=== PATIENT | male | born 1960 | race Caucasian/White ===

== ENCOUNTER 2016-06-17 19:30 | Observation (INO) | payer OTHER ==
[2016-06-17] MEDS ORDERED: IPRATROPIUM/ALBUTEROL 3 ML DEYVIAL IH ONE (19:48)
[2016-06-17] MEDS ORDERED: methylPREDNISolone SOD SUCC 125 MG/2 ML VIAL IVP ONE (20:14)
[2016-06-17] MEDS ORDERED: ALBUTEROL 3 ML DEYVIAL IH ONE ×2 (20:21→21:15)
--- NOTE | 2016-06-17 20:42 | CPEKG ---
Heart Rate: 90 RR Interval: 667 P-R Interval: 112 QRSD Interval: 82 QT Interval: 348 QTC Interval: 426 P Hinton: 91 QRS Hinton: 83 T Wave Hinton: 60 EKG Severity - ABNORMAL ECG - EKG Impression: SINUS RHYTHM EKG Impression: RIGHT ATRIAL ABNORMALITY Electronically Signed By: Josh Carey 17-Jun-2016 22:55:25
[2016-06-17 20:45] LABS: % IMMATURE GRANULYOCYTES 0.2 % (0.0-1.1); ABSOLUTE IMMATURE GRANULOCYTES 0.02 10^3/uL (0.00-0.10); ADD DIFF? NO; ADD MORPH? NO; ADD SCAN? NO; ATYPICAL LYMPHOCYTE FLAG 30 (0-99); FRAGMENT RBC FLAG 0 (0-99); HEMATOCRIT 45.8 % (40.0-51.0); HEMOGLOBIN 16.4 g/dL (13.7-17.5); LEFT SHIFT FLG 0 (0-99); LIPEMIA HEMOLYSIS FLAG 90 (0-99); MEAN CELL HEMOGLOBIN 33.8 pg (27.9-34.1); MEAN CELL HEMOGLOBIN CONCENTR. 35.8 g/dL (32.4-36.7); MEAN CELL VOLUME 94.4 fL (81.5-99.8); MEAN PLATELET VOLUME 9.9 fL (8.7-11.7); PLATELET CLUMPS FLAG 0 (0-99); PLATELET COUNT 129 10^3/uL (150-400); RED BLOOD CELL COUNT 4.85 10^6/uL (4.40-6.38); RED CELL DISTRIBUTION WIDTH 11.9 % (11.5-15.2)
[2016-06-17 20:52] LABS: ALANINE AMINOTRANSFERASE 32 IU/L (21-72); ALBUMIN 3.6 g/dL (3.5-5.0); ALKALINE PHOSPHATASE 55 IU/L (38-126); ANION GAP 13 mEq/L (8-16); ASPARTATE AMINOTRANSFERASE 26 IU/L (17-59); BILIRUBIN,TOTAL 0.7 mg/dL (0.1-1.4); CALCIUM 8.6 mg/dL (8.5-10.4); CARBON DIOXIDE 25 mEq/l (22-31); CHLORIDE 99 mEq/L (97-110); GLOMERULAR FILTRATION RATE > 60; GLUCOSE 145 mg/dL (70-100); POTASSIUM 3.7 mEq/L (3.5-5.2); SODIUM 137 mEq/L (134-144); TOTAL PROTEIN 6.4 g/dL (6.3-8.2)
[2016-06-17] MEDS ORDERED: ALBUTEROL INH PREPACK MDI TAKEHOME ONE (21:16)
--- NOTE | 2016-06-17 21:21 | UCPHY ---
H & P Patient Type: New (Patient's also provides history) Chief Complaint Nursing Narrative: Pt. states last few days,chest congestion as well as sinus congestion. Cough-essentially clear to yellow mucous when is able to cough mucous up. Fever? Time Seen by Provider: 06/17/16 20:12 HPI/ROS: This patient complains of a few days of increasing cough with yellow mucus production. He admits to chronic cough in a long history of smoking a pack or more day-currently a slightly under pack-a-day. His is noticed over the past year increasing weight loss in this patient and increasing respiratory symptoms of dyspnea and coughing. He is reluctant to receive physician and does not have a primary care physician. He takes no medications at home. Because of his worsening symptoms worsening dyspnea he finally agreed to come in [facility] with his for evaluation. ROS: He describes some low-grade subjective fevers over the past day or so but no high fevers or chills. HEENT: Mild nasal congestion. No sinus pain. No sore throat. Pulmonary: He denies pleuritic pain. He reports no hemoptysis. He admits dyspnea slightly worse than usual over the past few days. No orthopnea. Cardiovascular: No chest pain. No lower extremity swelling or calf pain. No lightheadedness. GI: No nausea vomiting. He does admit a poor appetite. : No complaints. Integumentary: No skin rash. Endocrine: No complaints , musculoskeletal he reports chronic neck pain that radiates to his left shoulder that is slightly worse in recent months but no acute injuries or new symptoms there. He attributes this to cervical disc disease. Neuro: No focal numbness tingling weakness. Complete ROS is otherwise negative. Source: Patient, Family Exam Limitations: No limitations - Medical/Surgical History PMH: Family history is notable for a mother who of emphysema. No premature coronary artery disease Hx Asthma: No Hx Chronic Respiratory Disease: No Hx Diabetes: No Hx Cardiac Disease: No Hx Renal Disease: No Hx Cirrhosis: No Hx Alcoholism: No Hx HIV/AIDS: No Hx Splenectomy or Spleen Trauma: No Other PMH: MEd hx-none. [id number] fusion,hip - Family History Significant Family History: COPD - Social History Smoking Status: Heavy smoker Alcohol Use: Rarely Drug Use: None - Physical Exam Exam: General Appearance: Cachectic appearing 55-year-old male appears older than his stated age Alert, no distress. Eyes: Pupils equal and round no pallor or injection. ENT, Mouth: Mucous membranes moist. Respiratory: Distant breath sounds with prolonged expiratory phase wheezing bilaterally and rhonchi bilaterally. Appreciate no rales. Cardiovascular: Regular rate and rhythm. No JVD. No peripheral edema. No calf swelling or tenderness. Gastrointestinal: Abdomen is soft and nontender, no masses, bowel sounds normal. Neurological: GCS of 15 with no focal sensory or motor deficits. Skin: Warm and dry, no rashes. Musculoskeletal: Neck is supple nontender. Extremities are symmetrical, full range of motion. Psychiatric: Mood and affect normal DIFFERENTIAL DIAGNOSIS: After history and physical exam differential diagnosis was considered for COPD exacerbation, pneumonia, rule out coronary syndrome Constitutional: Initial Vital Signs Temperature (C) 37.3 C 06/17/16 19:37 Heart Rate 101 H 06/17/16 19:37 Respiratory Rate 18 06/17/16 19:37 Blood Pressure 109/66 06/17/16 19:37 O2 Sat (%) 87 L 06/17/16 19:37 O2 Delivery Mode Room Air Allergies/Adverse Reactions: No Known Allergies Allergy (Verified 06/17/16 19:37) Home Medications: Medication Instructions Recorded Azithromycin [Zithromax] 250 mg PO DAILY #4 tab 06/17/16 Fluticasone Hfa 220 Mcg [Flovent 2 puffs IH DAILY #1 mdi 06/17/16 220 MCG Hfa MDI (*)] predniSONE 60 mg PO DAILY #12 tab 06/17/16 Medical Decision Making - Diagnostics EKG Interpretation: 12 lead EKG performed shortly after arrival indication: Dyspnea Performed at 8:40 p.m. Sinus rhythm at 90 No acute ischemic abnormalities are appreciated. For complete read please refer to trace master overall assessment sinus rhythm without evidence of acute ischemia Imaging: Imaging Impressions Chest X-Ray 06/17/16 19:48 Impression: 1. No pneumonia or edema. 2. COPD, with air trapping versus vigorous inspiration. Chest x-ray: My interpretation-significant COPD without focal infiltrates appreciated. ED Course/Re-evaluation: DuoNeb followed by 2 albuterol nebs Solu-Medrol 125 IV Zithromax 500 mg p.o. On re-examination the patient still has significant wheezing and hypoxia to 86 or 87% on room air He reports some subjective improvement but given his significant COPD and unwillingness to follow-up and he is important that we admit this patient for his ongoing hypoxia and significant dyspnea for further treatment of his COPD exacerbation. 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 After workup, I find no evidence of sepsis, or hemodynamic instability. I spoke with Dr. Klein, -hospitalist on-call who accepts the patient for a medical admission at [facility] for further treatment, evaluation possible pulmonary consult - Data Points Laboratory Results: Laboratory Results 06/17/16 20:23 06/17/16 20:23 06/17/16 06/17/16 20:23 20:23 WBC 8.11 10^3/uL 10^3/uL (3.80-9.50) RBC 4.85 10^6/uL 10^6/uL (4.40-6.38) Hgb 16.4 g/dL g/dL (13.7-17.5) Hct 45.8 % % (40.0-51.0) MCV 94.4 fL fL (81.5-99.8) MCH 33.8 pg pg (27.9-34.1) MCHC 35.8 g/dL g/dL (32.4-36.7) RDW 11.9 % % (11.5-15.2) Plt Count 129 10^3/uL L 10^3/uL (150-400) MPV 9.9 fL fL (8.7-11.7) Neut % (Auto) 78.3 % H % (39.3-74.2) Lymph % (Auto) 12.8 % L % (15.0-45.0) [place] % (Auto) 8.1 % % (4.5-13.0) Eos % (Auto) 0.1 % L % (0.6-7.6) Baso % (Auto) 0.5 % % (0.3-1.7) Nucleat RBC Rel Count 0.0 % % (0.0-0.2) Absolute Neuts (auto) 6.34 10^3/uL 10^3/uL (1.70-6.50) Absolute Lymphs (auto) 1.04 10^3/uL 10^3/uL (1.00-3.00) Absolute Monos (auto) 0.66 10^3/uL 10^3/uL (0.30-0.80) Absolute Eos (auto) 0.01 10^3/uL L 10^3/uL (0.03-0.40) Absolute Basos (auto) 0.04 10^3/uL 10^3/uL (0.02-0.10) Absolute Nucleated RBC 0.00 10^3/uL 10^3/uL (0-0.01) Immature Gran % 0.2 % % (0.0-1.1) Immature Gran # 0.02 10^3/uL 10^3/uL (0.00-0.10) Sodium 137 mEq/L mEq/L (134-144) Potassium 3.7 mEq/L mEq/L (3.5-5.2) Chloride 99 mEq/L mEq/L (97-110) Carbon Dioxide 25 mEq/l mEq/l (22-31) Anion Gap 13 mEq/L mEq/L (8-16) BUN 13 mg/dL mg/dL (7-23) Creatinine 1.0 mg/dL mg/dL (0.7-1.3) Estimated GFR > 60 Glucose 145 mg/dL H mg/dL (70-100) Calcium 8.6 mg/dL mg/dL (8.5-10.4) Total Bilirubin 0.7 mg/dL mg/dL (0.1-1.4) AST 26 IU/L IU/L (17-59) ALT 32 IU/L IU/L (21-72) Alkaline Phosphatase 55 IU/L IU/L (38-126) Total Protein 6.4 g/dL g/dL (6.3-8.2) Albumin 3.6 g/dL g/dL (3.5-5.0) Medications Given: Discontinued Medications Albuterol (Proventil Neb) 3 ml IH EDNOW ONE Stop: 06/17/16 20:22 Last Admin: 06/17/16 21:15 Dose: 3 ml Albuterol (Proventil Neb) 3 ml IH EDNOW ONE Stop: 06/17/16 21:16 Last Admin: 06/17/16 21:21 Dose: 3 ml Albuterol/Ipratropium (Duoneb) 3 ml IH EDNOW ONE Stop: 06/17/16 19:49 Last Admin: 06/17/16 20:10 Dose: 3 ml Azithromycin (Zithromax) 500 mg PO EDNOW ONE PRN Reason: Protocol Stop: 06/17/16 21:17 Last Admin: 06/17/16 22:20 Dose: 500 mg Methylprednisolone Sodium Succinate (Solu-Medrol) 125 mg IVP EDNOW ONE Stop: 06/17/16 20:15 Last Admin: 06/17/16 21:25 Dose: 125 mg Departure - Departure Disposition: [facility] Acute Clinical Impression: COPD exacerbation, Hypoxia Dyspnea Qualifiers: Dyspnea type: shortness of breath Qualified Code(s): R06.02 - Shortness of breath Condition: Good - PQRS PQRS Measurement: NA
[2016-06-17] MEDS: AZITHROMYCIN 250 MG TAB PO ONE ×2 (21:23→22:20)
[2016-06-18] MEDS ORDERED: ONDANSETRON 4 MG/2 ML VIAL IVP PRN (00:38)
[2016-06-18] MEDS ORDERED: ACETAMINOPHEN 325 MG TAB PO PRN (00:38)
[2016-06-18] MEDS ORDERED: ONDANSETRON DISINTEGRATING 4 MG TAB PO PRN (00:38)
[2016-06-18] MEDS ORDERED: ALBUTEROL 3 ML DEYVIAL IH PRN (00:41)
--- NOTE | 2016-06-18 01:17 | PDGENHP ---
History and Physical - Chief Complaint shortness of breath - History of Present Illness Patient is a 55 year old male with active tobacco use who presented to the Urgent Care with complaint of shortness of breath and cough. He states over the past 3-4 days he has had increased chest congestion and cough, occasionally productive of clear sputum. He also noticed increased dyspnea with minimal activity, which is a change from his baseline. Today, he had to leave work early due to feeling generalized fatigue, dyspnea and worsening respiratory symptoms. Denies any obvious associated fevers, chills, headache or chest pain or palpitations. He was brought to the [facility] by his after she found him in moderate respiratory distress while lying in bed. He denies any recent travel or obvious sick contacts. Patient has not seen a PMD since his PMD retired several years ago. He has never been evaluated for COPD but does report baseline dyspnea with heavy exertion. He also reports a decreased appetite and unintentional weight loss of about 25 lbs over the past 12 months. 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 On arrival to the [facility], patient was afebrile, hemodynamically stable, but hypoxic on room air. He was given IV steroids and several rounds of nebs with significant improvement in respiratory status. CXR was obtained and did not show obvious infiltrate or effusion. Labs also did not reveal significant leukocytosis or electrolyte abnormalities. He was then transferred to [facility] for admission. History Information - Allergies/Home Medication List Allergies/Adverse Reactions: No Known Allergies Allergy (Verified 06/17/16 19:37) I have personally reviewed and updated: family history, medical history, social history, surgical history - Past Medical History Additional medical history: chronic tobacco use. 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 Lived in [place] for past 30 years. Review of Systems ROS: 10pt was reviewed & negative except for what was stated in HPI & below Physical Exam Temp Pulse Resp BP Pulse Ox 36.6 C 84 18 111/56 L 88 L 06/18/16 00:09 06/18/16 00:09 06/17/16 23:20 06/18/16 00:09 06/18/16 00:09 O2 (L/minute) 0.5 Constitutional: no apparent distress, appears nourished, not in pain Eyes: PERRL, anicteric sclera, EOMI Ears, Nose, Mouth, Throat: moist mucous membranes, hearing normal, ears appear normal, no oral mucosal ulcers Cardiovascular: regular rate and rhythym, no murmur, rub, or gallop, pulses symmetric bilaterally, No JVD, No edema Peripheral Pulses: 2+: dorsalis-pedis (R), dorsalis-pedis (L) Respiratory: no respiratory distress, no rales or rhonchi, reduced air movement , expiratory wheeze Gastrointestinal: normoactive bowel sounds, soft, non-tender abdomen, no palpable masses, No guarding, No rebound Genitourinary: no bladder fullness, no bladder tenderness Skin: warm, normal color, no rashes or abrasions, no fluctuance, no induration, No mottled Musculoskeletal: full muscle strength, no muscle tenderness, normal joint ROM, no joint effusions Neurologic: AAOx3, sensation intact bilaterally, CN II-XII Intact, No weakness, No numbness Psychiatric: interacting appropriately, not anxious, not encephalopathic, thought process linear Lab Data & Imaging Review 06/18/16 04:55 06/18/16 04:55 WBC 8.11 10^3/uL (3.80-9.50) 06/17/16 20:23 RBC 4.85 10^6/uL (4.40-6.38) 06/17/16 20:23 Hgb 16.4 g/dL (13.7-17.5) 06/17/16 20:23 Hct 45.8 % (40.0-51.0) 06/17/16 20:23 MCV 94.4 fL (81.5-99.8) 06/17/16 20:23 MCH 33.8 pg (27.9-34.1) 06/17/16 20:23 MCHC 35.8 g/dL (32.4-36.7) 06/17/16 20:23 RDW 11.9 % (11.5-15.2) 06/17/16 20:23 Plt Count 129 10^3/uL (150-400) L 06/17/16 20:23 MPV 9.9 fL (8.7-11.7) 06/17/16 20:23 Neut % (Auto) 78.3 % (39.3-74.2) H 06/17/16 20:23 Lymph % (Auto) 12.8 % (15.0-45.0) L 06/17/16 20:23 [place] % (Auto) 8.1 % (4.5-13.0) 06/17/16 20:23 Eos % (Auto) 0.1 % (0.6-7.6) L 06/17/16 20:23 Baso % (Auto) 0.5 % (0.3-1.7) 06/17/16: Nucleat RBC Rel Count 0.0 % (0.0-0.2) 06/17/16 20: Absolute Neuts (auto) 6.34 10^3/uL (1.70-6.50) 06/17/16 20: Absolute Lymphs (auto) 1.04 10^3/uL (1.00-3.00) 06/17/16 20: Absolute Monos (auto) 0.66 10^3/uL (0.30-0.80) 06/17/16 20:23 Absolute Eos (auto) 0.01 10^3/uL (0.03-0.40) L 06/17/16 20:23 Absolute Basos (auto) 0.04 10^3/uL (0.02-0.10) 06/17/16: Absolute Nucleated RBC 0.00 10^3/uL (0-0.01) 06/17/16 20: Immature Gran % 0.2 % (0.0-1.1) 06/17/16 20: Immature Gran # 0.02 10^3/uL (0.00-0.10) 06/17/16 20:23 Sodium 137 mEq/L (134-144) 06/17/16 20:23 Potassium 3.7 mEq/L (3.5-5.2) 06/17/16 20:23 Chloride 99 mEq/L (97-110) 06/17/16 20:23 Carbon Dioxide 25 mEq/l (22-31) 06/17/16 20:23 Anion Gap 13 mEq/L (8-16) 06/17/16 20:23 BUN 13 mg/dL (7-23) 06/17/16 20:23 Creatinine 1.0 mg/dL (0.7-1.3) 06/17/16 20:23 Estimated GFR > 60 06/17/16 20:23 Glucose 145 mg/dL (70-100) H 06/17/16 20:23 Calcium 8.6 mg/dL (8.5-10.4) 06/17/16 20:23 Total Bilirubin 0.7 mg/dL (0.1-1.4) 06/17/16 20:23 AST 26 IU/L (17-59) 06/17/16 20:23 ALT 32 IU/L (21-72) 06/17/16 20:23 Alkaline Phosphatase 55 IU/L (38-126) 06/17/16 20:23 Total Protein 6.4 g/dL (6.3-8.2) 06/17/16 20:23 Albumin 3.6 g/dL (3.5-5.0) 06/17/16 20:23 Visualized and Interpreted Chest x-ray results: Yes Chest X-Ray results: other (hyperinflation, no infiltrate or effusion) Visualized and Interpreted EKG results: Yes EKG Interpretation: Positive for: normal sinsus rhythm Assessment & Plan Assessment: Patient is a 55 year old male with active tobacco use, poor medical follow up who presented to the [facility] with dyspnea and cough, was found to have acute hypoxic respiratory failure due to COPD exacerbation. Plan: # acute hypoxic respiratory failure Patient's symptoms and presenting exam, cxr and labs appear consistent with acute COPD exacerbation. This was likely triggered by viral URI. He has no risk factors for PE, denies any cardiac symptoms. Will treat with PO steroids, standing and prn nebs, azithromycin and supplemental O2 as needed. # cachexia Patient reports about a 25 lb weight loss over the past 1 year, unintentional. He feels this has been due to lack of appetite, insufficient po intake. Will check TSH, obtain dietary consult and recommend PMD upon discharge to facilitate age-appropriate screening. # dispo: admit to observation status # gen: Regular diet Full code
[2016-06-18 05:16] LABS: % IMMATURE GRANULYOCYTES 0.4 % (0.0-1.1); ABSOLUTE IMMATURE GRANULOCYTES 0.02 10^3/uL (0.00-0.10); ADD DIFF? NO; ADD MORPH? NO; ADD SCAN? NO; ATYPICAL LYMPHOCYTE FLAG 40 (0-99); FRAGMENT RBC FLAG 0 (0-99); HEMATOCRIT 46.6 % (40.0-51.0); HEMOGLOBIN 16.4 g/dL (13.7-17.5); LEFT SHIFT FLG 0 (0-99); LIPEMIA HEMOLYSIS FLAG 90 (0-99); MEAN CELL HEMOGLOBIN 33.8 pg (27.9-34.1); MEAN CELL HEMOGLOBIN CONCENTR. 35.2 g/dL (32.4-36.7); MEAN CELL VOLUME 96.1 fL (81.5-99.8); MEAN PLATELET VOLUME 10.1 fL (8.7-11.7); PLATELET CLUMPS FLAG 0 (0-99); PLATELET COUNT 113 10^3/uL (150-400); RED BLOOD CELL COUNT 4.85 10^6/uL (4.40-6.38); RED CELL DISTRIBUTION WIDTH 11.9 % (11.5-15.2)
[2016-06-18 05:22] LABS: ANION GAP 12 mEq/L (8-16); CALCIUM 8.8 mg/dL (8.5-10.4); CARBON DIOXIDE 24 mEq/l (22-31); CHLORIDE 102 mEq/L (97-110); CREATININE 0.9 mg/dL (0.7-1.3); GLOMERULAR FILTRATION RATE > 60; GLUCOSE 176 mg/dL (70-100); POTASSIUM 3.8 mEq/L (3.5-5.2); SODIUM 138 mEq/L (134-144)
[2016-06-18 05:31] LABS: INR 1.06 (0.83-1.16); PROTIME(PATIENT) 13.7 SEC (12.0-15.0)
[2016-06-18 05:32] LABS: APTT 31.3 SEC (23.0-38.0)
[2016-06-18] MEDS: IPRATROPIUM/ALBUTEROL 3 ML DEYVIAL IH SCH ×2 (06:14→10:41)
[2016-06-18 07:58] VITALS: TEMP 98.2
[2016-06-18] MEDS ORDERED: predniSONE 20 MG TAB PO SCH (09:00)
[2016-06-18] MEDS ORDERED: AZITHROMYCIN 250 MG TAB PO SCH (09:00)
[2016-06-18 11:34] VITALS: O2SAT 93
[2016-06-18 12:10] VITALS: BP 124/61; PULSE 98; RESP 88
--- NOTE | 2016-06-18 14:24 | GDS ---
[f rep st] DISCHARGE SUMMARY DISCHARGE DIAGNOSIS: Chronic obstructive pulmonary disease exacerbation. HISTORY: This is a 55-year-old male who is a heavy smoker. He presents with several days of increa sing shortness of breath. He does not have a formal diagnosis of COPD. HOSPITAL COURSE: The patient was admitted and given nebulizer treatments and antibiotics. Did not really endorse a lot in terms of change in sputum or fever, and thus antibiotics were discontinued. He did feel a little bit better but was continued to be hypoxic in the hospital. I would have like d him to stay another day but patient wanted to be discharged. I think that it is probably reasonab le. He will be given prednisone, Combivent, Advair and Spiriva on discharge. He should follow up w ith his primary care doctor. /[id number]/MODL
== END 2016-06-18 16:20 | disposition home or self-care (01) ==
LOC: CED 19:30 → CEDHOLD 22:15 → F3E 23:53
PROVIDERS: ADMIT Internal Medicine; ATTEND Internal Medicine
DX: J44.1 Chronic obstructive pulmonary disease with (acute) exacerbation (principal); J96.01 Acute respiratory failure with hypoxia; R64 Cachexia; F17.210 Nicotine dependence, cigarettes, uncomplicated; M43.22 Fusion of spine, cervical region
CPT/HCPCS: 71020; 93005; 96374; 99214; G0378; 80053-PO; 84481-90; 85025-PO; 99205-PO; G0463-PO

== ENCOUNTER → 2016-10-01 | Outpatient (CLI) | payer OTHER | LOC: CIMAGING 14:11 | PROVIDERS: ATTEND Internal Medicine Pulmonary Disease | DX: Z12.2 Encounter for screening for malignant neoplasm of respiratory organs (principal); R91.1 Solitary pulmonary nodule; Z87.891 Personal history of nicotine dependence | CPT/HCPCS: 71250-PO ==

== ENCOUNTER → 2018-06-26 | Outpatient (CLI) | payer OTHER | LOC: CIMAGING 15:11 | PROVIDERS: ATTEND Physician Assistant Medical | DX: R93.9 Diagnostic imaging inconclusive due to excess body fat of patient (principal); R91.1 Solitary pulmonary nodule; J43.9 Emphysema, unspecified | CPT/HCPCS: 71046-PO ==